=== PATIENT | male | born 1945 | race Two or more races ===

== ENCOUNTER 2017-06-26 15:03 | Emergency (ER) | payer MEDICARE ==
[~2017-06-26] VITALS: Ht 154.9 cm; Wt 72.6 kg
[2017-06-26] MEDS ORDERED: [UNRECOGNIZED DRUG - REMARK] (15:14)
--- NOTE | 2017-06-26 15:29 | Emergency Room Report ---
History of Present Illness General Chief Complaint: Head Injury Source: Patient Present Illness HPI 72-year-old male no significant past medical history presenting with closed head injury. Patient states that he missed a step and hit his head hard on the gait, sustained a laceration to his left head. Denies any LOC. Denies being on any blood thinners tdap up-to-date Allergies: Coded Allergies: No Known Allergies (Unverified , 06/26/17) Patient History Past Medical History: see triage record Past Surgical History: none Pertinent Family History: none Reviewed Nursing Documentation: PMH: Agreed, PSxH: Agreed Review of Systems All Other Systems: negative except mentioned in HPI Physical Exam Vital Signs Date Time Temp Pulse Resp B/P (MAP) Pulse Ox O2 Delivery O2 Flow Rate FiO2 06/26/17 15:10 98.3 100 18 152/90 95 Room Air 98.2 Sp02 EP Interpretation: reviewed, normal General Appearance: alert, GCS 15, non-toxic, mild distress Head: normocephalic - ~3cm linear scalp laceration L scalp Eyes: bilateral eye normal inspection, bilateral eye PERRL, bilateral eye EOMI ENT: normal ENT inspection, normal pharynx, normal voice, moist mucus membranes Neck: normal inspection, full range of motion, supple Respiratory: normal inspection, lungs clear, normal breath sounds, no respiratory distress, no retraction, no wheezing, speaking full sentences, chest symmetrical Cardiovascular #1: normal inspection, regular rate, rhythm, no edema, normal capillary refill Cardiovascular #2: 2+ radial (R), 2+ radial (L) Gastrointestinal: normal inspection, non tender, soft, non-distended, no guarding Genitourinary: no CVA tenderness Musculoskeletal: normal inspection, back normal, normal range of motion, non- tender Neurologic: normal inspection, alert, oriented x3, responsive, forestry aide III-XII nml as tested, motor strength/tone normal, sensory intact, normal gait, speech normal Psychiatric: normal inspection, judgement/insight normal, memory normal Skin: normal inspection, normal color, no rash, warm/dry, well hydrated, normal turgor Procedures Laceration/Wound Repair Laceration/Wound Repair : Consent: Verbal Wound Location: head Wound's Depth, Shape: superficial Wound Length (cm): 5 Irrigated w/ Saline (ccs): 1000 Betadine Prep?: Yes Anesthesia: 1% Lidocaine Volume Anesthetic (ccs): 5 Wound Repaired With: klever Number of Sutures: 5 Sterile Dressing Applied?: Yes Patient Tolerated: Well Complications: None Medical Decision Making Diagnostic Impression: Primary Impression: Head injury, closed Additional Impression: Scalp laceration ER Course 72-year-old male with closed head injury, scalp laceration DDX: Scalp laceration, rule out intracranial bleed Plan: CT head, laceration repair ER course: Patient has remained stable during ED stay. CT head is negative, remains awake alert, conversing with daughter Disposition: Patient is to be discharged to home. Instructed to follow up with his doctor or come back to the ER for staple removal in 7 days Please note that this Emergency Department Report was dictated using [employer] technology software, occasionally this can lead to erroneous entry secondary to interpretation by the dictation equipment CT/MRI/US Diagnostic Results CT/MRI/US Diagnostic Results : Imaging Test Ordered: ct head Impression Impression: Mild chronic and age-related changes Negative for acute intracranial bleed or mass effect Last Vital Signs Date Time Temp Pulse Resp B/P (MAP) Pulse Ox O2 Delivery O2 Flow Rate FiO2 06/26/17 15:10 98.3 100 18 152/90 95 Room Air 98.2 Disposition: HOME, SELF-CARE Condition: Improved Patient Instructions: Facial Laceration, [id number] Isatu Huizar M.D. Jun 26, 2017 15:29
--- NOTE | 2017-06-26 16:00 | Diagnostic Imaging Report ---
Indications: Pain status post fall Technique: Spiral acquisitions obtained through the brain. Angled axial and coronal 5 x 5 mm slices were reconstructed. Total dose length product 1347.93 mGycm. CTDI vol(s) 70.38 mGy. Dose reduction achieved using automated exposure control Comparison: None. Findings: There is a small left parietal scalp contusion. The calvarium is intact. The mastoids are under pneumatized on the right. The visualized orbits and sinuses are unremarkable. There is mild prominence of the ventricles and extra axial CSF spaces. There is minimal periventricular deep white matter low attenuation, consistent with chronic ischemic change. There is normal moore-white differentiation otherwise. Impression: Mild chronic and age-related changes Negative for acute intracranial bleed or mass effect The CT scanner at [facility] is accredited by the [employer] and the scans are performed using protocols designed to limit radiation exposure to as low as reasonably achievable to attain images of sufficient resolution adequate for diagnostic evaluation.
[2017-06-26 16:28] VITALS: BP 147/80
== END 2017-06-26 16:28 | disposition home or self-care (01) ==
LOC: EMR 15:45
DX: S09.8XXA Other specified injuries of head, initial encounter (principal); S01.01XA Laceration without foreign body of scalp, initial encounter; W10.9XXA Fall (on) (from) unspecified stairs and steps, initial encounter; Y92.9 Unspecified place or not applicable
CPT/HCPCS: 70450; 99284